=== PATIENT | male | born 1980 | race African-American/Black ===

== ENCOUNTER 2017-06-29 23:06 | Emergency (ER) | payer SELFPAY ==
[~2017-06-29] VITALS: Ht 190.5 cm; Wt 111.0 kg
[2017-06-30 00:12] LABS: WHITE BLOOD COUNT ND K/uL (4.1-10.2)
[2017-06-30 00:13] LABS: HEMATOCRIT ND % (38.0-50.0); HEMOGLOBIN ND G/DL (12.5-16.6); MCH ND PG (29.0-34.0); MCHC ND G/DL (30.0-36.0); MCV ND FL (86-99); RBC DIS.WIDTH-SD ND % (39-53); RED BLOOD COUNT ND M/uL (4.00-5.50)
[2017-06-30 00:14] LABS: IMM.PLATELET FRACTION ND (1-7); NRBC (%) ND /100 WBC (0-0); PLATELET COUNT ND K/uL (156-360); RBC DIS.WIDTH-CV ND % (11.8-14.6)
[2017-06-30 00:19] LABS: ALBUMIN 4.2 g/dL (3.2-4.8); CHLORIDE 105 mEq/L (99-109); POTASSIUM 3.4 mEq/L (3.7-5.4); SODIUM 139 mEq/L (136-147)
[2017-06-30 00:22] LABS: TOTAL PROTEIN 7.1 g/dL (6.4-8.3)
[2017-06-30 00:23] LABS: TOTAL BILIRUBIN 0.8 mg/dL (0.0-1.0)
[2017-06-30 00:24] LABS: SERUM ETHYL ALCOHOL < 10 mg/dL
[2017-06-30 00:25] LABS: ALKALINE PHOSPHATASE 68 IU/L (3-129); CREATININE 1.3 mg/dL (0.6-1.3); GFR ESTIMATE (CALCULATED) > 59 mL/min/ (58.99-99999)
[2017-06-30 00:26] LABS: UREA NITROGEN (BUN) 8 mg/dL (9-23)
[2017-06-30 00:27] LABS: AST (GOT) 75 IU/L (2-34)
[2017-06-30 00:28] LABS: ALT (GPT) 24 IU/L (3-49)
[2017-06-30 00:37] LABS: CREATINE KINASE 3815 IU/L (1-294)
[2017-06-30 00:55] VITALS: BP 133/74
[2017-06-30 01:08] LABS: GLUCOSE 99 mg/dL (70-99)
== END 2017-06-30 00:55 ==
LOC: EME 23:06
PROVIDERS: Emergency Medicine
DX: M62.82 Rhabdomyolysis (principal); F16.10 Hallucinogen abuse, uncomplicated; R74.8 Abnormal levels of other serum enzymes; Z04.6 Encounter for general psychiatric examination, requested by authority
CPT/HCPCS: 80053; 82550; 85027; 99281; 99285; G0480; J1630; J2060; J2250